=== PATIENT | male | born 1970 | race Caucasian/White ===

== ENCOUNTER 2017-01-11 10:28 | Emergency (ER) | payer SELFPAY ==
[~2017-01-11] VITALS: Ht 180.3 cm; Wt 81.0 kg
[~2017-01-11 10:28] MED LIST: IBUP800T23 PO
[2017-01-11 10:29] VITALS: BP 133/88; PULSE 108; RESP 14; TEMP 98.1; O2SAT 99
[2017-01-11] MEDS ORDERED: MAGICADU2 SWISH-SPIT (11:17)
[2017-01-11] MEDS ORDERED: AMOX500T PO (11:17)
[2017-01-11] MEDS ORDERED: PERI0.126 SWISH-SPIT (11:17)
[2017-01-11] MEDS ORDERED: IBUP800T23 PO (11:17)
--- NOTE | 2017-01-11 11:17 | PD ---
HPI Chief Complaint: Oral / Dental Pain or Problem Time Seen by Provider: 11:15 Travel History International Travel<30 days: No Contact w/Intl Traveler<30days: No Traveled to known affect area: No History of Present Illness HPI 46-year-old male presents to the emergency Department with complaint of right lower tooth pain times one month. Denies fever, chills, nausea, vomiting. Denies facial edema or erythema. No known relieving factors. Aggravated with palpation and eating. Has not taken any medications or tried any treatments to alleviate his symptoms. Says he needs this tooth pulled and has not been able to follow-up with a dentist. Patient is also requesting prescriptions for his depression and anxiety. He denies suicidal or homicidal ideations. Allergies to Geodon, Haldol, Risperdal, Seroquel. No other modifying factors or associated signs and symptoms. PFSH Social History Alcohol Use: Yes Tobacco Use: Yes Substance Use: Yes (etoh) Allergies-Medications (Allergen,Severity, Reaction): Coded Allergies: Geodon (Verified Allergy, Severe, Anaphylaxis, 07/02/16) Haldol (Verified Allergy, Severe, Anaphylaxis, 07/02/16) Risperdal (Verified Allergy, Severe, Anaphylaxis, 07/02/16) Seroquel (Verified Allergy, Severe, Anaphylaxis, 07/02/16) Reported Meds & Prescriptions Reported Meds & Active Scripts Active Ibuprofen 800 Mg Tab 800 Mg PO Q6HR PRN Peridex Liq (Chlorhexidine Gluconate (Mouth) Liq) 0.12% Soln 15 Ml SWISH-SPIT BID 10 Days Magic Mouthwash Adult Liq (Multi-Ingredient Mouthwash/Gargle) 120 Ml Susp 5 Ml SWISH-SPIT Q3HR PRN Each 5mL contains: Nystatin 200,000units, Diphenhydramine 4.25mg, Viscous Lidocaine 10mg, Tierney syrup 0.8 mL Amoxicillin 500 Mg Tab 500 Mg PO BID 10 Days Ibuprofen 800 Mg Tab 800 Mg PO Q8 PRN Review of Systems Except as stated in HPI: all other systems reviewed are Neg Physical Exam Narrative GENERAL: Well-nourished, well-developed male patient, in no acute distress; afebrile, nontoxic-appearing SKIN: Warm and dry. ;HEAD: Atraumatic. Normocephalic. No facial edema, erythema, tenderness on palpation. No lymphadenopathy. EYES: Pupils equal and round. No scleral icterus. No injection or drainage. ENT: Mucosa pink and moist. No erythema or exudates. No uvular edema. No uvular , palatal, or tonsillar deviation. Airway patent. MOUTH: Mucous membranes moist, no lesions, tongue and gums appear normal. Right lower second molar with tenderness on palpation and with dental caries; surrounding gingiva is without erythema, edema, drainage. No obvious abscess noted. NECK: Trachea midline. No lymphadenopathy. CARDIOVASCULAR: Regular rate. RESPIRATORY: No accessory muscle use. GASTROINTESTINAL: Flat. MUSCULOSKELETAL: No obvious deformities. No clubbing. No cyanosis. No edema. NEUROLOGICAL: Awake and alert. Oriented 3. No obvious cranial nerve deficits. Motor grossly within normal limits. Normal speech. PSYCHIATRIC: Appropriate mood and affect; insight and judgment normal. No delusional thought processes. No hallucinations. Data Data Last Documented VS Vital Signs Date Time Temp Pulse Resp B/P Pulse Ox O2 Delivery O2 Flow Rate FiO2 01/11/17 10:29 98.1 108 14 133/88 99 MDM Medical Decision Making Medical Screen Exam Complete: Yes Emergency Medical Condition: Yes Medical Record Reviewed: Yes Differential Diagnosis Dentalgia, dental abscess, depression, anxiety, medication refill Narrative Course 46-year-old male physical exam consistent with right lower second molar dentalgia. No facial edema, erythema. Patient is afebrile and nontoxic- appearing. He denies fever, chills, nausea, vomiting. No obvious dental abscess noted. Patient is also requesting prescriptions for depression and anxiety. He denies suicidal or homicidal ideations. I offered to order a psych screening and the patient declined at this time. Emergency dental information sheet provided. Outpatient community resource to [facility] included an discharge instructions. Patient verbalized understanding and agreement with treatment plan. Amoxicillin, Peridex mouth rinse, Magic mouthwash, ibuprofen prescribed for home. Patient is medically cleared and stable for discharge. Discussed reasons to return to the emergency department. Instructed patient to follow up with primary care provider. Patient agrees with treatment plan. The patients vital signs are stable and the patient is stable for outpatient follow-up and treatment. Patient discharged home, stable and in no acute distress. Diagnosis Primary Impression: Dentalgia Referrals: Primary Care Physician [facility] Patient Instructions: Dental Abscess (ED), Dental Caries (ED), General Instructions, Toothache (ED) Departure Forms: Tests/Procedures, Work Release Enter return to work date: Jan 11, 2017 Additional Instructions: Complete full course of antibiotics Ibuprofen as directed and as needed to reduce pain and inflammation Use Magic mouthwash rinse as directed and as needed to decrease pain Use Peridex as directed for oral hygiene Warm compresses to the affected area Follow-up with dentist Follow-up with primary care provider Return to emergency department immediately with worsening of symptoms Med/Other Pt SpecificInfo: Prescription(s) given Scripts Ibuprofen 800 Mg [id number] Mg PO Q6HR PRN (PAIN) #30 TAB Ref 0 Prov:Karla Fortune 01/11/17 Chlorhexidine Gluconate (Mouth) Liq (Peridex Liq)0.12% Soln15 Ml SWISH-SPIT BID 10 Days Ref 0 Prov:Karla Fortune 01/11/17 Ukkquzrt-Aydkwncorgelpzo-Zqnexapqv Liq (Magic Mouthwash Adult Liq)120 Ml Susp5 Ml SWISH-SPIT Q3HR PRN (PAIN SCALE 1 TO 10) #120 ML Ref 0 Each 5mL contains: Nystatin 200,000units, Diphenhydramine 4.25mg, Viscous Lidocaine 10mg, Tierney syrup 0.8 mL Prov:Karla Fortune 01/11/17 Amoxicillin 500 Mg [id number] Mg PO BID 10 Days Ref 0 Prov:Karla Fortune 01/11/17 Disposition: 01 DISCHARGE HOME Condition: Stable Karla Fortune Jan 11, 2017 11:17
== END 2017-01-11 11:36 | disposition home or self-care (01) ==
LOC: NEPB 10:28
DX: K08.89 Other specified disorders of teeth and supporting structures (principal); F41.8 Other specified anxiety disorders; F10.10 Alcohol abuse, uncomplicated; Z72.0 Tobacco use
CPT/HCPCS: 99282

== ENCOUNTER 2017-02-19 12:05 | Emergency (ER) | payer OTHER ==
[~2017-02-19] VITALS: Ht 175.3 cm; Wt 100.0 kg
[~2017-02-19 12:05] MED LIST changes: +AMOX500T PO; +MAGICADU2 SWISH-SPIT; +PERI0.126 SWISH-SPIT
[2017-02-19] MEDS ORDERED: LORazepam 2 MG/ML VIAL IM ONE (13:15)
[2017-02-19 13:42] LABS: AUTOMATED NEUTROPHIL # 5.9 TH/MM3 (1.8-7.7); BASOPHIL # 0.1 TH/MM3 (0-0.2); BASOPHIL % 0.7 % (0.0-2.0); EOSINOPHIL # 0.1 TH/MM3 (0-0.4); EOSINOPHIL % 1.3 % (0.0-4.0); HEMATOCRIT 45.8 % (39.0-51.0); HEMO FLAGS DIFF FINAL; LYMPH % 19.7 % (9.0-44.0); LYMPHOCYTE # 1.6 TH/MM3 (1.0-4.8); MEAN CELL VOLUME 92.4 FL (80.0-100.0); MEAN CORPUSCULAR HEMOGLOBIN 32.2 PG (27.0-34.0); MEAN CORPUSCULAR HGB CONC 34.8 % (32.0-36.0); MONO % 4.8 % (0.0-8.0); NEUT % 73.5 % (16.0-70.0); PLATELET COUNT 244 TH/MM3 (150-450); RED BLOOD COUNT 4.95 MIL/MM3 (4.50-5.90); RED CELL DISTRIBUTION WIDTH 13.9 % (11.6-17.2)
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
[2017-02-19 13:46] VITALS: BP 111/70; PULSE 121; RESP 24; TEMP 97.9; O2SAT 99
[2017-02-19 14:08] LABS: ALKALINE PHOSPHATASE 72 U/L (45-117); ALT (GPT) 18 U/L (12-78); ANION GAP 8 MEQ/L (5-15); AST (GOT) 21 U/L (15-37); BLOOD UREA NITROGEN 8 MG/DL (7-18); CHLORIDE 111 MEQ/L (98-107); GLOMERULAR FILTRATION RATE 67 ML/MIN (>89); POTASSIUM 3.8 MEQ/L (3.5-5.1); SODIUM (NA) 146 MEQ/L (136-145); TOTAL BILIRUBIN ADULT 0.2 MG/DL (0.2-1.0)
[2017-02-19 16:27] LABS: AMPHETAMINE, URINE NEG (NEG); BARBITURATES, URINE NEG (NEG); COCAINE, URINE NEG (NEG)
[2017-02-19 18:37] VITALS: BP 150/89; PULSE 96; RESP 21; TEMP 97.7
[2017-02-19 20:41] VITALS: BP 131/78; PULSE 99; RESP 18
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
[2017-02-19 22:27] VITALS: RESP 20
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
[2017-02-20 01:53] VITALS: BP 131/94; PULSE 125; RESP 18; O2SAT 97
[2017-02-20] MEDS ORDERED: LORazepam 2 MG/ML VIAL IM ONE (03:30)
[2017-02-20] MEDS ORDERED: ACETAMINOPHEN 500 MG CPLT PO ONE (03:30)
[2017-02-20 06:30] VITALS: BP 127/79; PULSE 84; RESP 18; O2SAT 97
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
== END 2017-02-20 10:09 | disposition home or self-care (01) ==
LOC: NEPE 12:05 → NEPJ 02-20 10:09
DX: Z02.89 Encounter for other administrative examinations (principal); F23 Brief psychotic disorder; F10.129 Alcohol abuse with intoxication, unspecified; R51 Headache; M54.9 Dorsalgia, unspecified; Z72.0 Tobacco use; Z86.59 Personal history of other mental and behavioral disorders
CPT/HCPCS: 70450; 80053; 80307; 85025; 96372; 99285; J2060